=== PATIENT | female | born 1985 | race African-American/Black ===

== ENCOUNTER 2022-04-17 18:09 | Emergency (ER) | payer OTHER ==
[~2022-04-17] VITALS: Ht 157.5 cm; Wt 110.0 kg
[2022-04-17] MEDS ORDERED: METH-653 MT (22:39)
[2022-04-17] MEDS ORDERED: IBUP-2029 MT (22:39)
[2022-04-17 22:59] VITALS: BP 139/85
== END 2022-04-17 23:00 | disposition home or self-care (01) ==
LOC: ER 18:37
DX: M79.604 Pain in right leg (principal); M25.561 Pain in right knee; M79.18 Myalgia, other site
CPT/HCPCS: 73560; 81025; 93971; 99284